=== PATIENT | male | born 2000 | race Caucasian/White ===

== ENCOUNTER 2022-07-08 09:14 | Outpatient (CLI) | payer OTHER, SELFPAY ==
[2022-07-08 13:31] LABS: Albumin* 5.1 g/dL (3.3-5.0)
[2022-07-08 13:32] LABS: Chloride* 103 mmol/L (96-114); Potassium* 4.9 mmol/L (3.6-5.1); Sodium* 142 mmol/L (135-149)
[2022-07-08 13:34] LABS: Alkaline Phosphatase* 73 U/L (40-150); Aspartate Amino Transferase* 28 U/L (12-35); Bilirubin Total* 0.6 mg/dL (0.1-1.5); Blood Urea Nitrogen* 16 mg/dL (5-24); Carbon Dioxide* 30 mmol/L (20-32); Creatinine* 0.9 mg/dL (0.5-1.5); Estimated Glomerular Filt Rate 123 ml/min; Total Protein* 7.6 g/dL (6.0-8.3)
[2022-07-08 13:35] LABS: Alanine Aminotransferase* 54 U/L (4-50); Calcium* 10.1 mg/dL (8.4-10.6); Glucose* 104 mg/dL (60-115)
== END 2022-07-08 09:15 | disposition home or self-care (01) ==
LOC: FRMREF 09:16
PROVIDERS: Visit Provider Physician Assistant Medical
DX: R10.30 Lower abdominal pain, unspecified (principal)
CPT/HCPCS: 80053